=== PATIENT | male | born 1970 | race Caucasian/White ===

== ENCOUNTER → 2018-03-02 | Outpatient (CLI) | payer OTHER ==
[~2018-03-02] MED LIST: ALBUTEROL; CALC500T6 PO; CEP500 PO; CHOL200018 PO; CYC10 PO; ESCI20TA38 PO; HYDR-385 PO; HYDR473S4 PO; HYDROCODONE PO; HYOS0.1225 PO; IBU800 PO; IBUP800T37 PO; LEVO-85 PO; NO MEDS; ONDA4TAB PO; OXYC-865 PO; PANT20TA27 PO; PER PO
--- NOTE | 2018-03-02 11:06 | RADIOLOGY IMAGING REPORT ---
FACILITY: [facility] PATIENT NAME: Tyrel Zurita : 1970 MR: [id number] V: [id number] EXAM DATE: ORDERING PHYSICIAN: ZOE GOODRICH TECHNOLOGIST: Location: [facility] - [place] Patient: Tyrel Zurita : 1970 Visit/Account:[id number] Date of Sevice: 03/02/2018 Exam type: THORACIC SPINE 3 VIEWS History: Lower back pain started of last week Comparison: Cervical spine series January 31, 2015. Findings: Incompletely imaged are postsurgical changes from anterior posterior fusion at C5-6 and seven there i s no evidence of acute fractures or subluxations within the thoracic spine. Mild spondylotic changes are noted in the upper to mid thoracic spine IMPRESSION: 1. 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
== END ==
LOC: RAD 09:07
PROVIDERS: ATTEND Physician Assistant Medical
DX: M54.14 Radiculopathy, thoracic region (principal)
CPT/HCPCS: 72072